=== PATIENT | female | born 1975 | race Caucasian/White ===

== ENCOUNTER 2016-10-10 08:28 | Emergency (ER) | payer BC ==
[2016-10-10 08:39] VITALS: BMI 34.4
[2016-10-10 08:40] VITALS: RESP 18; TEMP 98.5
--- NOTE | 2016-10-10 09:23 | C.PDOC ---
History Of Present Illness 40 y/o female presents to ED with complaints of injury to Left Forearm/wrist s/ p a fall last night. Patient states she missed a step and accidentally fell down the stairs and woke up this morning with onset pain in forearm and wrist worse with movement. Patient is right handed and denies taking medications EMERGENCY ROOM PHYSICIAN or any associated symptoms. No other complaints at this time. SP FALL LAST NIGHT CO INJURY L FOREARM/WRIST. PS MISSTEPPED AND ACCID FELL DOWN STAIRS. AWOKE THIS MORNING W NEW ONSET PAIN FOREARM/WRIST. WORSE W MOVEMENT. DENIES OTHER ASSOC SX. R HANDED. NO MEDS TAKEN EMERGENCY ROOM PHYSICIAN EXAM MILD DIST NONTOXIC HEENT ATRAUM EXT LUE FULL EXTENTION L ELBOW, LIMITED SUPINATION DUE TO PAIN IN FOREARM. REPRODUC PAIN L FOREARM W ROM. DIFFUSE FOREARM TEND NO GROSS DEFORM. NONTEND L WRIST. SKIN +BRUISING L UPPER ARM, INTACT NO ERYTHEMA NEURO NO FOCAL DEF Time Seen by Provider: 10/10/16 09:17 Chief Complaint (Nursing): Trauma History Per: Patient History/Exam Limitations: no limitations Onset/Duration Of Symptoms: Days Past Medical History Reviewed: Historical Data, Nursing Documentation, Vital Signs Vital Signs: Last Vital Signs Temp 98.5 F 10/10/16 08:39 Pulse 86 10/10/16 08:39 Resp 18 10/10/16 08:39 BP 132/86 10/10/16 08:39 Pulse Ox 97 10/10/16 10:25 Family History: States: No Known Family Hx - Social History Hx Alcohol Use: Yes Hx Substance Use: No - Immunization History Hx Tetanus Toxoid Vaccination: No Hx Influenza Vaccination: No Hx Pneumococcal Vaccination: No Review Of Systems Except As Marked, All Systems Reviewed And Found Negative. Cardiovascular: Negative for: Chest Pain Respiratory: Negative for: Shortness of Breath Gastrointestinal: Negative for: Nausea, Vomiting, Diarrhea Musculoskeletal: Positive for: Arm Pain. Negative for: Neck Pain Neurological: Negative for: Weakness, Numbness, Dizziness Physical Exam - Physical Exam Appears: Non-toxic, Other (Mild Distress) Skin: Warm, Other (+bruising L upper arm, intact no erythema) Head: Atraumatic, Normacephalic Eye(s): bilateral: Normal Inspection Ear(s): Bilateral: Normal Nose: Normal Oral Mucosa: Moist Neck: Normal ROM Extremity: Tenderness (Diffuse Left forearm tenderness), No Deformity, Other ( full extention of Left elbow but limited supination due to pain, Reproducing pain L forearm with ROM, Non tender L wrist) Neurological/Psych: Oriented x3, Normal Speech, Other (No focal deficits) ED Course And Treatment O2 Sat by Pulse Oximetry: 97 (RA) Pulse Ox Interpretation: Normal - Other Rad L FOREARM X-Ray: Interpreted by Me (DISTAL ULNAR FX MIN DISPLAC COMMINUTED) L ELBOW X-Ray: Interpreted by Me (NEG) L WRIST X-Ray: Interpreted by Me (NEG) - Physician Consult Information Time Consulting Physician Contacted: 09:50 Physician Contacted: Vinicio Hammonds Outcome Of Conversation: AWARE OF ER FINDINGS AGREES W PLAN. FU OFFICE THIS OR NEXT WEEK. Orthopedic Time Performed: 09:45 Time Out: Side verified, Site verified, Patient ID confirmed Procedure: Splint Type: Long (POSTERIOR SPLINT) Location: Left, Arm Consent obtained: Verbal Performed by: Attending Physician Diagnosis: Fracture Type: Closed, Minimally displaced, Comminuted Location: Left Bone: Ulna Capillary refill: Normal Distal Sensation: Normal Distal Motor Function: Normal Capillary Refill: Normal Compartment: Normal Distal Sensation: Normal Distal Motor Function: Normal Patient tolerated procedure: Well Disposition Counseled Patient/Family Regarding: Studies Performed, Diagnosis, Need For Followup, Rx Given - Disposition Referrals: Stephy Hui MD [Staff Provider] - Disposition: HOME/ ROUTINE Disposition Time: 10:15 Condition: IMPROVED Prescriptions: oxyCODONE/Acetaminophen [Percocet 5/325 mg Tab] 1 tab PO QID PRN #14 tab PRN Reason: Pain Instructions: Arm Fracture in Adults (ED), Splint Care (ED) Forms: Work Excuse - Clinical Impression Clinical Impression: Forearm fracture - 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 MD/DO has examined the patient and agrees with the treatment plan. - Scribe Statement The provider has reviewed the documentation as recorded by the Birgit Holley All medical record entries made by the Giuseppeibdaja were at my direction and personally dictated by me. I have reviewed the chart and agree that the record accurately reflects my personal performance of the history, physical exam, medical decision making, and the department course for this patient. I have also personally directed, reviewed, and agree with the discharge instructions and disposition.
[2016-10-10 11:02] VITALS: BP 124/72; PULSE 71; O2SAT 99
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
== END 2016-10-10 11:02 | disposition home or self-care (01) ==
LOC: C.ER 08:28
DX: S52.692A Other fracture of lower end of left ulna, initial encounter for closed fracture (principal); W10.9XXA Fall (on) (from) unspecified stairs and steps, initial encounter

== ENCOUNTER 2017-08-22 12:28 | Emergency (ER) | payer MEDICAID ==
[2017-08-22 12:29] VITALS: BMI 34.4
[2017-08-22 12:45] VITALS: O2SAT 100
--- NOTE | 2017-08-22 14:49 | RAD ---
PROCEDURE: Left Knee Radiographs. HISTORY: Pain. No history of recent/ related trauma provided COMPARISON: None. FINDINGS: BONES: Normal. No fracture. JOINTS: Normal. No osteoarthritis. JOINT EFFUSION: None. OTHER FINDINGS: None. IMPRESSION: No significant or acute findings to account for/ related to the clinical presentation.
--- NOTE | 2017-08-22 15:07 | VASCLAB ---
PROCEDURE: Left Lower Extremity Venous Duplex Exam. HISTORY: knee pain PRIORS: None. TECHNIQUE: Left common femoral, femoral, popliteal and posterior tibial, peroneal and great saphenous veins were evaluated. Flow was assessed with color Doppler, compressibility, assessment of phasic flow and augmentation response. Report prepared by WILL Viera, RVT FINDINGS: LEFT: 1. Common Femoral Vein: 1.1. Compressibility - Fully compressible: Thrombus - None : Flow - Phasic: Augmentation -Normal: Reflux - None. 2. Femoral Vein: 2.1. Compressibility - Fully compressible: Thrombus - None: Flow - Phasic: Augmentation -Normal: Reflux - None. 3. Popliteal Vein: 3.1. Compressibility - Fully compressible: Thrombus - None: Flow - Phasic: Augmentation -Normal: Reflux - None. 4. Posterior Tibial Vein: 4.1. Compressibility - Fully compressible: Thrombus - None: Flow - Phasic: Augmentation -Normal: Reflux - None. 5. Peroneal Vein: 5.1. Compressibility - Fully compressible: Thrombus - None: Flow - Phasic: Augmentation -Normal: Reflux - None. 6. Great Saphenous Vein: 6.1. Compressibility - Fully compressible: Thrombus - None: Flow - Phasic: Augmentation - Normal: Reflux - None. OTHER FINDINGS: IMPRESSION: No evidence of deep or superficial vein thrombosis of the left lower extremity with excellent venous flow. Normal valve function noted of the left side. Normal venous flow noted in the right common femoral vein.
--- NOTE | 2017-08-22 15:22 | C.PDOC ---
History Of Present Illness 41 y/o female presents to the emergency room complaining of left knee pain and swelling for 2 days. No trauma or fall. She denies fever, chills, hx of DVT/PE, or other injury. She took Motrin with minimal relief. Time Seen by Provider: 08/22/17 14:03 Chief Complaint (Nursing): Lower Extremity Problem/Injury History Per: Patient History/Exam Limitations: no limitations Onset/Duration Of Symptoms: Days Current Symptoms Are (Timing): Still Present Past Medical History Reviewed: Historical Data, Nursing Documentation, Vital Signs Vital Signs: Last Vital Signs Temp 98.4 F 08/22/17 15:32 Pulse 82 08/22/17 15:32 Resp 18 08/22/17 15:32 BP 138/76 08/22/17 15:32 Pulse Ox 100 08/22/17 15:32 Other Surgeries: Left breast surgery, Hysterectomy Family History: States: No Known Family Hx - Social History Hx Alcohol Use: Yes Hx Substance Use: No - Immunization History Hx Tetanus Toxoid Vaccination: No Hx Influenza Vaccination: No Hx Pneumococcal Vaccination: No Review Of Systems Except As Marked, All Systems Reviewed And Found Negative. Musculoskeletal: Positive for: Leg Pain (left knee pain) Physical Exam - Physical Exam Appears: Non-toxic, No Acute Distress Skin: Normal Color, Warm, Dry Extremity: Tenderness (to left anterior knee and popliteal region), Other ( Negative varus and valgus stress; Negative drawer sign; No cellulitic component ; Negative homans sign) Pulses: Left Dorsalis Pedis: Normal, Right Dorsalis Pedis: Normal Neurological/Psych: Oriented x3 ED Course And Treatment O2 Sat by Pulse Oximetry: 100 (RA) Pulse Ox Interpretation: Normal Medical Decision Making Medical Decision Making: Impression: Left knee pain Initial Plan: --Urine test --X-ray left knee --Motrin 600 mg PO --US Doppler, left lower extremity X-ray and US were both negative. Patient will be discharged home. Advised to f/ u with orthopedics. Disposition Counseled Patient/Family Regarding: Studies Performed, Diagnosis, Need For Followup, Rx Given - Disposition Referrals: Armando Buckley III, MD [Staff Provider] - Disposition: HOME/ ROUTINE Disposition Time: 15:21 Condition: STABLE Additional Instructions: follow up with your doctor in 2 days call to make an appointment continue your home medications return to ER if symptoms worsens or progress Prescriptions: Naproxen [Naprosyn] 500 mg PO BID PRN #16 tab PRN Reason: Pain, Moderate (4-7) Instructions: Knee Pain Forms: General Discharge Instructions, [facility] (Kittitian), Work Excuse - Clinical Impression Clinical Impression: Knee pain - Scribe Statement The provider has reviewed the documentation as recorded by the Scribe (Kelsea Nam) Provider Attestation: All medical record entries made by the Scribe were at my direction and personally dictated by me. I have reviewed the chart and agree that the record accurately reflects my personal performance of the history, physical exam, medical decision making, and the department course for this patient. I have also personally directed, reviewed, and agree with the discharge instructions and disposition.
[2017-08-22 15:32] VITALS: BP 138/76; PULSE 82; RESP 18; TEMP 98.4
== END 2017-08-22 15:33 | disposition home or self-care (01) ==
LOC: C.ER 12:28
DX: M25.562 Pain in left knee (principal)

== ENCOUNTER 2018-08-25 20:35 | Emergency (ER) | payer SELFPAY ==
[2018-08-25 20:36] VITALS: BMI 34.4
[2018-08-25 21:08] VITALS: RESP 18; O2SAT 98
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
[2018-08-25 22:21] VITALS: BP 136/82; PULSE 86; TEMP 98
--- NOTE | 2018-08-26 17:09 | RAD ---
Date of service: 08/25/2018 PROCEDURE: Cervical Spine Radiographs. HISTORY: Pain. COMPARISON: None available. TECHNIQUE: 3 views obtained. FINDINGS: BONES: Alignment maintained. No fracture. Dens Intact. There is straightening of the normal lordotic curvature of the cervical spine indicating possible muscular spasm. DISC SPACES: Narrowing of the C4-5 and C5-6 intervertebral disc spaces. Osteophytes noted about the C5-6 and C6-7 disc spaces. Consistent with multilevel degenerative disc disease. SOFT TISSUES: Normal. No prevertebral soft tissue swelling. OTHER FINDINGS: None. IMPRESSION: No fracture/dislocation. Straightening of the lordotic curvature indicates possible muscular spasm. Multilevel degenerative disc disease.
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
== END 2018-08-25 22:26 | disposition home or self-care (01) ==
LOC: C.ER 20:35
DX: S16.1XXA Strain of muscle, fascia and tendon at neck level, initial encounter (principal); S43.402A Unspecified sprain of left shoulder joint, initial encounter; V49.9XXA Car occupant (driver) (passenger) injured in unspecified traffic accident, initial encounter

== ENCOUNTER 2018-09-08 17:59 | Emergency (ER) | payer SELFPAY ==
[2018-09-08 17:59] VITALS: BMI 34.4
[2018-09-08 18:05] VITALS: RESP 20; O2SAT 98
[2018-09-08] MEDS ORDERED: Sodium Chloride 0.9% 1,000 ML IV ONE (18:21)
[2018-09-08 18:37] LABS: HCG,QUALITATIVE URINE NEGATIVE (NEGATIVE)
[2018-09-08 18:40] LABS: SQUAMOUS EPITHIAL 11 /hpf (0-5); URINE BACTERIA RARE (<OCC); URINE BILIRUBIN 1+ (NEGATIVE); URINE BLOOD NEGATIVE (NEGATIVE); URINE CLARITY Hazy (Clear); URINE COLOR Amber (YELLOW); URINE GLUCOSE (UA) NORMAL (Normal); URINE LEUKOCYTE ESTERASE NEG Leu/uL (Negative); URINE PROTEIN 2+ mg/dL (NEGATIVE)
[2018-09-08] MEDS ORDERED: Sodium Chloride 0.9% 1,000 ML ONE (18:45)
[2018-09-08 18:53] LABS: BASO # 0.1 K/uL (0.0-0.2); BASO % 0.8 % (0.0-2.0); HEMOGLOBIN 15.1 g/dL (11.0-16.0); LYMPH # 0.8 K/uL (1.0-4.3); LYMPH % 7.2 % (20.0-40.0); MEAN CELL VOLUME 100.2 fL (81.0-99.0); MEAN CORPUSCULAR HEMOGLOBIN 33.9 pg (27.0-31.0); MEAN CORPUSCULAR HGB CONC 33.9 g/dL (33.0-37.0); MEAN PLATELET VOLUME 9.3 fL (7.2-11.7); MONO # 0.5 K/uL (0.0-0.8); MONO % 4.6 % (0.0-10.0); NEUT # 9.7 K/uL (1.8-7.0); NEUT % 87.4 % (50.0-75.0); NRBC % 0.1 % (0.0-2.0); PLATELET COUNT 200 K/uL (130-400); RBC 4.46 Mil/uL (3.80-5.20); RED CELL DISTRIBUTION WIDTH 14.1 % (11.5-14.5); WHITE BLOOD COUNT 11.1 K/uL (4.8-10.8)
[2018-09-08 18:55] LABS: BLOOD UREA NITROGEN 5 mg/dL (7-17); CALCIUM 9.4 mg/dl (8.6-10.4); GFR NON-AFRICAN AMERICAN > 60; LIPASE 54 U/L (23-300)
[2018-09-08 18:57] LABS: BARBITURATES, UR NEGATIVE (NEGATIVE); BENZODIAZEPINES, UR NEGATIVE (NEGATIVE); OPIATES, UR NEGATIVE (NEGATIVE); PHENCYCLIDINE, UR NEGATIVE (NEGATIVE)
[2018-09-08 18:57] LABS: ALB/GLOB RATIO 1.1 (1.0-2.1); ALT/SGPT 86 U/L (9-52); AST/SGOT 176 U/L (14-36)
[2018-09-08] MEDS ORDERED: Iodixanol 320 MG/ML 100 ML BOTTLE IV ONE (19:19)
[2018-09-08 19:33] LABS: LYMPHOCYTE 6 % (20-40); MONOCYTE 5 % (0-10); NEUTROPHIL 89 % (50-75); PLATELET ESTIMATE NORMAL (NORMAL); TOTAL CELLS COUNTED 100
--- NOTE | 2018-09-08 21:33 | C.PDOC ---
History Of Present Illness 42 year old female presents to the emergency department with complaints of episode of epigastric discomfort, nausea and vomiting which resolved RELATIONSHIP COUNSELOR. Patient denies nausea, vomiting, diarrhea, and other physical complaints at this time. <Mason Phelps - Last Filed: 09/08/18 22:45> History Per: Patient History/Exam Limitations: no limitations Onset/Duration Of Symptoms: Hrs Current Symptoms Are (Timing): Gone Location Of Pain/Discomfort: Epigastric Quality Of Discomfort: "Pain" <Mason Phelps - Last Filed: 09/08/18 22:45> <Jocelyn Bruce - Last Filed: 09/10/18 16:36> Time Seen by Provider: 09/08/18 18:16 Chief Complaint (Nursing): GI Problem Past Medical History Reviewed: Historical Data, Nursing Documentation, Vital Signs Vital Signs: Last Vital Signs Temp 98.5 F 09/08/18 18:03 Pulse 98 H 09/08/18 18:03 Resp 20 09/08/18 18:03 BP 151/83 H 09/08/18 18:03 Pulse Ox 98 09/08/18 18:03 Primary Care Provider: Nacho Ocasio - Medical History PMH: No Chronic Diseases Denies: Chronic Kidney Disease Surgical History: No Surg Hx Family History: States: No Known Family Hx - Social History Hx Alcohol Use: Yes Hx Substance Use: No - Immunization History Hx Tetanus Toxoid Vaccination: No Hx Influenza Vaccination: No Hx Pneumococcal Vaccination: No <Mason Phelps - Last Filed: 09/08/18 22:45> Vital Signs: Last Vital Signs Temp 98.4 F 09/08/18 22:04 Pulse 86 09/08/18 22:04 Resp 20 09/08/18 22:04 BP 138/82 09/08/18 22:04 Pulse Ox 98 09/08/18 22:51 <Jocelyn Bruce - Last Filed: 09/10/18 16:36> Review Of Systems Except As Marked, All Systems Reviewed And Found Negative. Constitutional: Negative for: Fever, Chills Cardiovascular: Negative for: Chest Pain Respiratory: Negative for: Cough, Shortness of Breath Gastrointestinal: Positive for: Nausea, Vomiting, Abdominal Pain. Negative for: Diarrhea <Mason Phelps - Last Filed: 09/08/18 22:45> Physical Exam - Physical Exam Appears: Non-toxic, No Acute Distress Skin: Normal Color, Warm, Dry Head: Atraumatic, Normacephalic Eye(s): bilateral: Normal Inspection, PERRL, EOMI Nose: Normal Oral Mucosa: Moist Neck: Normal, Supple Chest: Symmetrical, No Tenderness Cardiovascular: Rhythm Regular, No Murmur Respiratory: Normal Breath Sounds, No Rales, No Rhonchi, No Wheezing Gastrointestinal/Abdominal: Soft, Tenderness (right-sided abdominal tenderness), No Guarding, No Rebound Extremity: Normal ROM Neurological/Psych: Oriented x3, Normal Speech, Normal Cognition <Mason Phelps - Last Filed: 09/08/18 22:45> ED Course And Treatment - Laboratory Results Result Diagrams: 09/08/18 18:38 09/08/18 18:38 Lab Results: Total Bilirubin 2.9 mg/dL (0.2-1.3) H 09/08/18 18:38 Direct Bilirubin 1.3 mg/dL (0.0-0.4) H 09/08/18 19:00 AST 176 U/L (14-36) H 09/08/18 18:38 ALT 86 U/L (9-52) H 09/08/18 18:38 Alkaline Phosphatase 64 U/L (38-126) 09/08/18 18:38 Total Protein 9.4 g/dL (6.3-8.3) H 09/08/18 18:38 Albumin 5.0 g/dL (3.5-5.0) 09/08/18 18:38 Globulin 4.4 gm/dL (2.2-3.9) H 09/08/18 18:38 Albumin/Globulin Ratio 1.1 (1.0-2.1) 09/08/18 18:38 Lipase 54 U/L (23-300) 09/08/18 18:38 Urine Color Soo (YELLOW) 09/08/18 18:31 Urine Clarity Hazy (Clear) 09/08/18 18:31 Urine pH 5.0 (5.0-8.0) 09/08/18 18:31 Ur Specific Bunch 1.029 (1.003-1.030) 09/08/18 18:31 Urine Protein 2+ mg/dL (NEGATIVE) H 09/08/18 18:31 Urine Glucose (UA) Normal mg/dL (Normal) 09/08/18 18:31 Urine Ketones 1+ mg/dL (NEGATIVE) H 09/08/18 18:31 Urine Blood Negative (NEGATIVE) 09/08/18 18:31 Urine Nitrate Negative (NEGATIVE) 09/08/18 18:31 Urine Bilirubin 1+ (NEGATIVE) H 09/08/18 18:31 Urine Urobilinogen 4.0 mg/dL (0.2-1.0) H 09/08/18 18:31 Ur Leukocyte Esterase Neg Tu/uL (Negative) 09/08/18 18:31 Urine WBC (Auto) 9 /hpf (0-5) H 09/08/18 18:31 Urine RBC (Auto) 1 /hpf (0-3) 09/08/18 18:31 Ur Squamous Epith Cells 11 /hpf (0-5) H 09/08/18 18:31 Urine Bacteria Rare (<OCC) 09/08/18 18:31 Urine HCG, Qual Negative (NEGATIVE) 09/08/18 18:31 Urine HCG, Qual Negative (NEGATIVE) 09/08/18 18:31 Lab Interpretation: Abnormal (b-bili 2.9 H, AST 176, ALT 86) Urine POC: Negative O2 Sat by Pulse Oximetry: 98 (RA) Pulse Ox Interpretation: Normal - CT Scan/US CT Abdomen and Pelvis Other Rad Studies (CT/US): Read By Radiologist, Radiology Report Reviewed CT/US Interpretation: IMPRESSION: 1. There is diffuse fatty infiltration of liver. 2. The pancreas is slightly fatty replaced. 3. Small hiatal hernia. 4. Bladder is decompressed. 5. There is some air in the vagina. Please correlate clinically. 6. Mild atherosclerotic calcification of the abdominal aorta. 7. Mild multilevel degenerative spine changes. 8. Otherwise, no acute pathology identified in the abdomen or pelvis. Reevaluation Time: 21:31 Reassessment Condition: Improved <Mason Phelps - Last Filed: 09/08/18 22:45> - Laboratory Results Result Diagrams: 09/08/18 18:38 09/08/18 18:38 Lab Results: Total Bilirubin 2.9 mg/dL (0.2-1.3) H 09/08/18 18:38 Direct Bilirubin 1.3 mg/dL (0.0-0.4) H 09/08/18 19:00 AST 176 U/L (14-36) H 09/08/18 18:38 ALT 86 U/L (9-52) H 09/08/18 18:38 Alkaline Phosphatase 64 U/L (38-126) 09/08/18 18:38 Total Protein 9.4 g/dL (6.3-8.3) H 09/08/18 18:38 Albumin 5.0 g/dL (3.5-5.0) 09/08/18 18: Globulin 4.4 gm/dL (2.2-3.9) H 09/08/18 18:38 Albumin/Globulin Ratio 1.1 (1.0-2.1) 09/08/18 18: Lipase 54 U/L (23-300) 09/08/18 18:38 Urine Color Soo (YELLOW) 09/08/18 18:31 Urine Clarity Hazy (Clear) 09/08/18 18:31 Urine pH 5.0 (5.0-8.0) 09/08/18 18:31 Ur Specific Bunch 1.029 (1.003-1.030) 09/08/18 18:31 Urine Protein 2+ mg/dL (NEGATIVE) H 09/08/18 18:31 Urine Glucose (UA) Normal mg/dL (Normal) 09/08/18 18:31 Urine Ketones 1+ mg/dL (NEGATIVE) H 09/08/18 18:31 Urine Blood Negative (NEGATIVE) 09/08/18 18:31 Urine Nitrate Negative (NEGATIVE) 09/08/18 18:31 Urine Bilirubin 1+ (NEGATIVE) H 09/08/18 18:31 Urine Urobilinogen 4.0 mg/dL (0.2-1.0) H 09/08/18 18:31 Ur Leukocyte Esterase Neg Tu/uL (Negative) 09/08/18 18:31 Urine WBC (Auto) 9 /hpf (0-5) H 09/08/18 18:31 Urine RBC (Auto) 1 /hpf (0-3) 09/08/18 18:31 Ur Squamous Epith Cells 11 /hpf (0-5) H 09/08/18 18:31 Urine Bacteria Rare (<OCC) 09/08/18 18:31 Urine HCG, Qual Negative (NEGATIVE) 09/08/18 18:31 Urine HCG, Qual Negative (NEGATIVE) 09/08/18 18:31 <Jocelyn Bruce - Last Filed: 09/10/18 16:36> Medical Decision Making Medical Decision Making: vomiting of ? etiology prob NOT biliary colic no biliary stones no elev alk phos mild elev LFT's may be due to fatty liver/PATTERSON opt f/u for Hepatitis series. diet/weight loss counseled Plan: CT Abdomen and Pelvis Chemistry CBC XR Obstructive Series pepcid 20mg IVP NaCl IV Fluids Toradol 30mg IVP Zofran 4mg IVP HCG Qualitative Urine Urinalysis <Mason Phelps - Last Filed: 09/08/18 22:45> Disposition Doctor Will See Patient In The: Office Counseled Patient/Family Regarding: Studies Performed, Diagnosis - Disposition Disposition Time: 21:32 <Mason Phelps - Last Filed: 09/08/18 22:45> <Jocelyn Bruce - Last Filed: 09/10/18 16:36> - Disposition Referrals: Nacho Ocasio, DNP, MOWER OPERATOR [Advanced Practice Nurse] - Disposition: HOME/ ROUTINE Condition: GOOD Additional Instructions: vomiting: bland diet for 2 days Pepcid 20 mg @ night for 1 week- lowers stomach acid Hiatal hernia prob related to body habitus weight loss Fatty liver/elevated bili's weight loss boarderline DM no meds now diet/weight loss Instructions: Nausea and Vomiting, Adult (DC) Forms: [employer] (Welsh) - Clinical Impression Clinical Impression: Vomiting - Scribe Statement The provider has reviewed the documentation as recorded by the Scribe (Sky Archer) Provider Attestation: All medical record entries made by the Scribe were at my direction and personally dictated by me. I have reviewed the chart and agree that the record accurately reflects my personal performance of the history, physical exam, medical decision making, and the department course for this patient. I have also personally directed, reviewed, and agree with the discharge instructions and disposition. <Mason Phelps E - Last Filed: 09/08/18 22:45> Addendum Addendum: 09/10/18 16:[address] scan was placed in PA review. The numbers [phone] and [phone] were called with no response. <Jocelyn Bruce - Last Filed: 09/10/18 16:36>
[2018-09-08 22:05] VITALS: BP 138/82; PULSE 86; TEMP 98.4
--- NOTE | 2018-09-09 12:38 | CT ---
Date of service: 09/08/2018 PROCEDURE: CT abdomen and pelvis HISTORY: ? biliary/liver COMPARISON: None. TECHNIQUE: Contiguous axial images of the abdomen and pelvis performed following intravenous injection of approximately 100 cc Visipaque 320 contrast material. Additional 2D sagittal and coronal reformats generated. Radiation dose: Total exam DLP = 1174.44 mGy-cm. This CT exam was performed using one or more of the following dose reduction techniques: Automated exposure control, adjustment of the mA and/or kV according to patient size, and/or use of iterative reconstruction technique. FINDINGS: LOWER THORAX: Heart size within range of normal. No significant pericardial effusion. There is a small hiatal hernia. No acute infiltrate effusion or basilar pneumothorax. LIVER: Liver extends laterally to the left into the left upper quadrant. Moderate fatty hepatic infiltration. No obvious hepatic mass collection or calcification the portal and splenic veins opacified. GALLBLADDER AND BILE DUCTS: Unremarkable. PANCREAS: Pancreas is slightly atrophic and fatty replaced. No pancreatic mass collection calcification. SPLEEN: Unremarkable. No splenomegaly. ADRENALS: Unremarkable. KIDNEYS AND URETERS: Kidneys demonstrate symmetric nephrograms. No evidence of nephrolithiasis or hydronephrosis. BLADDER: Urinary bladder incompletely distended which may in part account for thick-walled appearance however correlation with urinalysis to exclude cystitis. REPRODUCTIVE: Suspect small right ovarian cyst. Slightly bulky appearing cervix. Consider follow-up slip sheeter consultation APPENDIX: No evidence of acute appendicitis. BOWEL: Evaluation of the bowel is somewhat limited due to the lack of oral contrast material. The stomach is distended with liquid liquified food debris and air. Visualized loops of small bowel exhibit normal contour and caliber. No evidence of acute mechanical small bowel obstruction. Colon appears unremarkable. PERITONEUM: Unremarkable. No fluid collection. No free air. Tiny bilateral fat containing inguinal hernias. Small fat containing umbilical hernia. LYMPH NODES: Unremarkable. No enlarged lymph nodes. VASCULATURE: Unremarkable. No aortic aneurysm. No aortic atherosclerotic calcification or mural plaque present. BONES: Minor multilevel degenerative spondylosis of the lower thoracic and lumbar spine. OTHER FINDINGS: None. IMPRESSION: Moderate fatty hepatic infiltration. Liver extends laterally into the left upper quadrant of the abdomen. Suspect small right ovarian cyst. Slightly bulky appearing cervix. Consider follow-up slip sheeter consultation. Note this report was placed PA review folder follow up. Urinary bladder incompletely distended which in part accounts for thick-walled appearance however correlation with urinalysis recommended to exclude cystitis.
--- NOTE | 2018-09-09 15:37 | RAD ---
Date of service: 09/08/2018 PROCEDURE: Radiographs of the chest and abdomen (obstructive series) HISTORY: abd pain COMPARISON: No prior. TECHNIQUE: AP radiograph of the chest, with upright and supine radiographs of the abdomen. 3 views obtained. FINDINGS: CHEST: Lungs: Minor bibasilar atelectasis. Cardiovascular: Normal size heart. No pulmonary vascular congestion. No aortic atherosclerotic calcification present Pleura: No pleural fluid. No pneumothorax. Other findings: None. ABDOMEN AND PELVIS: Bowel: Unremarkable bowel gas pattern. No evidence of mechanical obstruction. Free air: None. Bones: Minor multilevel degenerative spondylosis of the thoracic lumbar spine. Other findings: None. IMPRESSION: Minimal bibasilar atelectasis. Unremarkable examination of the abdomen.. No evidence of mechanical bowel obstruction.
== END 2018-09-08 22:05 | disposition home or self-care (01) ==
LOC: C.ER 17:59
DX: R11.2 Nausea with vomiting, unspecified (principal)
CPT/HCPCS: 74022; 74177; 80053; 81001; 82248; 83690; 84703; 85025; 96374; 96375; 99285; G0480; J1885; J2405; J7030; Q9967